=== PATIENT | male | born 1960 | race Caucasian/White ===

== ENCOUNTER → 2016-11-10 | Outpatient (CLI) | payer OTHER ==
[2016-11-10 14:46] LABS: CHLORIDE,CL 109 mmol/L (98-110); SODIUM,NA 141 mmol/L (136-146)
== END ==
LOC: MW.LAB 13:41
PROVIDERS: ATTEND Orthopaedic Surgery
DX: M25.511 Pain in right shoulder (principal)
CPT/HCPCS: 36415; 80069; 84550; 85025; 85652; 86038; 86140; 86430; 86812

== ENCOUNTER 2021-08-21 04:16 | Emergency (ER) | payer OTHER ==
[2021-08-21] MEDS ORDERED: Morphine 4 MG/ML VIAL IVPUSH ONE (04:22)
--- NOTE | 2021-08-21 04:33 | EDM.PDOC ---
<Tanner Duffy - Last Filed: 08/21/21 06:18> ED HPI GENERAL MEDICAL PROBLEM - General Chief Complaint: Chest Pain Stated Complaint: SEVERE CHEST PAINS Time Seen by Provider: 08/21/21 06:00 - History of Present Illness INITIAL COMMENTS - FREE TEXT/NARRATIVE: CHIEF COMPLAINT(S): Chest pain HISTORY OF PRESENT ILLNESS: This is a 61-year-old man with a past medical history of hypertension who comes to the emergency department with a chief complaint of chest pain. The patient states that starting approximately 6-1/2 hours ago he started to experience left-sided chest pain which he states that does not radiate. He describes it as sharp and rates it as 8-9 out of 10. He states that he does have some associated shortness of breath. He states that he was working at the time and it has not gotten any better and is only getting worse. He has not tried any pain medication. He denies any diaphoresis, nausea or vomiting. He denies any numbness or tingling. He states that he had a similar pain approximately week ago but it improved. He currently states that he also had a fall 1 week ago and landed on his anterior chest with his hand in front of his chest. He states this feels similar however his pain improved after his fall so he did not think anything of it. He denies any prior history of CAD, CHF, recent travel, recent surgery or prior history of DVT or PE. He denies any history of aortic aneurysm or dissection. REVIEW OF SYSTEMS: Constitutional: Denies fever, chills. Eyes: Denies eye pain Ears, Nose, Mouth, & Throat: Denies earache Cardiovascular: Positive for chest pain Respiratory: Positive for shortness of breath Gastrointestinal: Denies Nausea, vomiting, diarrhea, hematochezia. Genitourinary: Denies hematuria Skin:Denies a rash MSK: Denies joint pain Neurological: Denies blurred vision, numbness, tingling Psychiatric: Denies depression PAST MEDICAL HISTORY: As per history of present illness and as reviewed below otherwise noncontributory. SURGICAL HISTORY: As per history of present illness and as reviewed below otherwise noncontributory. SOCIAL HISTORY: As per history of present illness and as reviewed below otherwise noncontributory. FAMILY HISTORY: As per history of present illness and as reviewed below otherwise noncontributory. EXAMINATION OF ORGAN SYSTEMS/BODY AREAS: Constitutional: Blood pressure is 166/101, heart rate 95, respiratory rate 22 with an oxygen saturation of 100% on room air. Temperature 36.7 General: Middle-aged man who appears to be in a moderate amount of pain Psychiatric: Appropriate mood and affect. Eyes: No scleral icterus or conjunctival erythema ENMT: Moist mucous membranes. No pharyngeal erythema Cardiovascular: Regular, rate, and rhythm. No gallops, murmurs, or rubs. Bilateral upper extremity pulses symmetric and intact. No peripheral edema. No JVD. Respiratory: Lungs clear to auscultation bilaterally. No wheezes, rales, or rhonchi. The patient is mildly tachypneic but is speaking in full sentences. Gastrointestinal: Soft, tenderness to palpation in the epigastric region. Nondistended. No rebound or guarding. Normoactive bowel sounds Genitourinary: No suprapubic tenderness Musculoskeletal: Normal range of motion. Skin: No lesions or abrasions. Neurological: Alert, GCS 15 strength and sensation grossly intact in upper and lower extremities bilaterally MEDICAL DECISION MAKING AND COURSE IN THE ED WITH INTERPRETATION/REVIEW OF DIAGNOSTIC STUDIES: This is a 61-year-old man with a past medical history of hypertension who comes to the emergency department with acute onset severe chest pain with an examination revealing abdominal pain and tachypnea who is hypertensive. At this time we did obtain a screening EKG which did not reveal any acute signs of ischemia. Cardiac monitoring at this time did reveal sinus rhythm and pulse oximetry with good waveform was 100% on room air. Given his hypertension and severe chest pain and abdominal pain I am concerned about the possibility of aortic dissection. Obtain a CT angiogram of the chest abdomen pelvis to evaluate. Will also undergo an ACS work-up. We will provide the patient with 4 mg of IV morphine at this time and will await imaging prior to providing the patient with aspirin. Patient was amenable to this plan DDx: ACS, musculoskeletal pain, aortic dissection Laboratory: CBC reveals a leukocytosis of 12.44, elevated hemoglobin 18 otherwise unremarkable. BMP reveals elevated creatinine of 1.4 otherwise unremarkable. Magnesium is normal at 1.8. Troponin is negative. Covid and influenza are negative. On reevaluation patient reported improvement in his chest pain however it had not resolved. At this time imaging was still pending. We will reevaluate. Repeat EKG was obtained which did reveal sinus rhythm with intermittent pauses. No evidence of heart block otherwise. The radiological images were viewed by myself along with reading the report from the radiologist. CTA of the thorax, abdomen and pelvis does not reveal any evidence of aortic dissection or abnormality. There is mild right paratracheal mediastinal lymphadenopathy otherwise unremarkable. There was no intra-abdominal process. In addition there is a mild compression fracture of T6 vertebral body of indeterminate age and degenerative disc disease. Heart Score History: Slightly or Non-Suspicious (0) ECG: Non-specific repolarization (1) Age: 45-64 (1) Risk Factors: 1-2 (1) Initial Troponin: </= normal limit (0) Total Score: 3-> low risk Given the CT is negative we will provide the patient with aspirin by mouth. Differential also includes costochondritis given his recent fall. There was no evidence of bony abnormalities. We will provide the patient with Flexeril and reevaluate. At this time given his continued chest pain I would like to obtain a repeat troponin at 3 hours. He was amenable to this plan. DISPOSITION: Patient was signed out to oncoming day team physician pending repeat troponin and final disposition CONDITION: Fair PROCEDURES: Cardiac monitoring interpretation, pulse oximetry interpretation FINAL IMPRESSION(S)/DIAGNOSES: 1. Acute chest pain 2. Acute shortness of breath Tanner Duffy M.D. 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 Cardiovascular History: Reports: Hypertension Respiratory History: Reports: None Gastrointestinal History: Reports: None Genitourinary History: Reports: None Musculoskeletal History: Reports: Gout Neurological History: Reports: None Psychiatric History: Reports: None Endocrine/Metabolic History: Reports: Obesity/BMI 30+ Hematologic History: Reports: None Immunologic History: Reports: None Oncologic (Cancer) History: Reports: None Dermatologic History: Reports: None - Infectious Disease History Infectious Disease History: Reports: None - Past Surgical History Head Surgeries/Procedures: Reports: None Social & Family History - Family History Family Medical History: No Pertinent Family History ED ROS GENERAL - Review of Systems Review Of Systems: See Below ED EXAM, GENERAL - Physical Exam Exam: See Below Departure - Departure Disposition: Home, Self-Care 01 Clinical Impression: Chest pain Qualifiers: Chest pain type: unspecified Qualified Code(s): R07.9 - Chest pain, unspecified - Discharge Information Instructions: Nonspecific Chest Pain, Adult Referrals: PCP,None [Primary Care Provider] - Forms: ED Department Discharge Additional Instructions: Your labs were grossly unremarkable. You should follow-up with a poultry dressing worker to see about getting a stress test. If you have worsening chest pain you should come back to the ER. Wool Hanker: [facility] [address] [place] [phone] The following information is given to patients seen in the emergency department who are being discharged to home. This information is to outline your options for follow-up care. We provide all patients seen in our emergency department with a follow-up referral. The need for follow-up, as well as the timing and circumstances, are variable depending upon the specifics of your emergency department visit. If you don't have a primary care physician on staff, we will provide you with a referral. We always advise you to contact your personal physician following an emergency department visit to inform them of the circumstance of the visit and for follow-up with them and/or the need for any referrals to a consulting specialist. The emergency department will also refer you to a specialist when appropriate. This referral assures that you have the opportunity for follow-up care with a specialist. All of these measure are taken in an effort to provide you with optimal care, which includes your follow-up. Under all circumstances we always encourage you to contact your private physician who remains a resource for coordinating your care. When calling for f ollow-up care, please make the office aware that this follow-up is from your recent emergency room visit. If for any reason you are refused follow-up, please contact the [facility] Emergency Department at and asked to speak to the emergency department charge nurse. Please follow up with your primary care physician. If you do not have a primary care physician, see below: [facility] [address] [place] [id number] [facility] [address] [place], [place] [id number] [facility] [address], [place] [address] Sepsis Event Note (ED) - Evaluation Sepsis Screening Result: No Definite Risk <Enrico Case - Last Filed: 08/21/21 08:16> ED HPI GENERAL MEDICAL PROBLEM - General Source of Information: Reports: Patient History Limitations: Reports: No Limitations Course - Vital Signs Last Recorded V/S: Last Vital Signs Temp 98.1 F 08/21/21 04:23 Pulse 82 08/21/21 07:00 Resp 18 08/21/21 07:00 BP 173/92 H 08/21/21 07:00 Pulse Ox 99 08/21/21 07:00 - Orders/Labs/Meds Orders: Active Orders 24 hr Category Date Time Status Cardiac Monitoring [RC] . DIRECTED Care 08/21/21 04:22 Active Pulse Oximetry [RC] ASDIRECTED Care 08/21/21 04:22 Active Labs: Laboratory Tests 08/21/21 08/21/21 08/21/21 Range/Units 04:20 04:20 05:16 WBC 12.44 H (4.0-11.0) K/uL RBC 5.18 (4.50-5.90) M/uL Hgb 18.0 H (13.0-17.0) g/dL Hct 49.9 (38.0-50.0) % MCV 96.3 (80.0-98.0) fL MCH 34.7 H (27.0-32.0) pg MCHC 36.1 (31.0-37.0) g/dL RDW Std Deviation 43.5 (28.0-62.0) fl RDW Coeff of [place] 12 (11.0-15.0) % Plt Count 245 (150-400) K/uL MPV 10.30 (7.40-12.00) fL Neut % (Auto) 59.4 (48.0-80.0) % Lymph % (Auto) 29.6 (16.0-40.0) % Lyman % (Auto) 9.0 (0.0-15.0) % Eos % (Auto) 1.5 (0.0-7.0) % Baso % (Auto) 0.5 (0.0-1.5) % Neut # (Auto) 7.4 H (1.4-5.7) K/uL Lymph # (Auto) 3.7 H (0.6-2.4) K/uL Lyman # (Auto) 1.1 H (0.0-0.8) K/uL Eos # (Auto) 0.2 (0.0-0.7) K/uL Baso # (Auto) 0.1 (0.0-0.1) K/uL Nucleated RBC % 0.0 /100WBC Nucleated RBCs # 0 K/uL Sodium 140 (136-148) mmol/L Potassium 3.9 (3.5-5.1) mmol/L Chloride 104 (98-107) mmol/L Carbon Dioxide 22.0 (21.0-32.0) mmol/L BUN 18 (7.0-18.0) mg/dL Creatinine 1.4 H (0.8-1.3) mg/dL Est Cr Clr Drug Dosing TNP Estimated GFR (MDRD) 51.4 ml/min Glucose 90 (74-106) mg/dL Calcium 9.3 (8.5-10.1) mg/dL Magnesium 1.8 (1.8-2.4) mg/dL Troponin I < 0.050 (0.000-0.056) ng/mL Influenza Type A RNA NEGATIVE (NEGATIVE) Influenza Type B RNA NEGATIVE (NEGATIVE) SARS-CoV-2 RNA (VIANNEY) NEGATIVE (NEGATIVE) 08/21/21 Range/Units 07:12 WBC (4.0-11.0) K/uL RBC (4.50-5.90) M/uL Hgb (13.0-17.0) g/dL Hct (38.0-50.0) % MCV (80.0-98.0) fL MCH (27.0-32.0) pg MCHC (31.0-37.0) g/dL RDW Std Deviation (28.0-62.0) fl RDW Coeff of [place] (11.0-15.0) % Plt Count (150-400) K/uL MPV (7.40-12.00) fL Neut % (Auto) (48.0-80.0) % Lymph % (Auto) (16.0-40.0) % Lyman % (Auto) (0.0-15.0) % Eos % (Auto) (0.0-7.0) % Baso % (Auto) (0.0-1.5) % Neut # (Auto) (1.4-5.7) K/uL Lymph # (Auto) (0.6-2.4) K/uL Lyman # (Auto) (0.0-0.8) K/uL Eos # (Auto) (0.0-0.7) K/uL Baso # (Auto) (0.0-0.1) K/uL Nucleated RBC % /100WBC Nucleated RBCs # K/uL Sodium (136-148) mmol/L Potassium (3.5-5.1) mmol/L Chloride (98-107) mmol/L Carbon Dioxide (21.0-32.0) mmol/L BUN (7.0-18.0) mg/dL Creatinine (0.8-1.3) mg/dL Est Cr Clr Drug Dosing Estimated GFR (MDRD) ml/min Glucose (74-106) mg/dL Calcium (8.5-10.1) mg/dL Magnesium (1.8-2.4) mg/dL Troponin I < 0.050 (0.000-0.056) ng/mL Influenza Type A RNA (NEGATIVE) Influenza Type B RNA (NEGATIVE) SARS-CoV-2 RNA (VIANNEY) (NEGATIVE) Meds: Medications Discontinued Medications Generic Name Dose Route Start Last Admin Trade Name Freq PRN Reason Stop Dose Admin Aspirin 324 mg 08/21/21 06:20 08/21/21 06:33 Aspirin 81 Mg Tab.Chew PO 08/21/21 06:21 324 mg ONETIME ONE Administration Cyclobenzaprine HCl 10 mg 08/21/21 06:20 08/21/21 06:33 Cyclobenzaprine 10 Mg Tab PO 08/21/21 06:21 10 mg ONETIME ONE Administration Lactated Ringer's 1,000 mls @ 999 mls/hr 08/21/21 05:31 08/21/21 05:38 Ringers, Lactated IV 08/21/21 06:31 999 mls/hr STAT STA Administration Iopamidol 100 ml 08/21/21 05:09 08/21/21 05:10 Iopamidol 755 Mg/Ml 500 Ml Multipack Bottle IVPUSH 08/21/21 05:10 100 ml ONETIME STA Administration Morphine Sulfate 4 mg 08/21/21 04:22 08/21/21 04:30 Morphine 4 Mg/Ml Vial IVPUSH 08/21/21 04:23 4 mg ONETIME ONE Administration - Re-Assessments/Exams Free Text/Narrative Re-Assessment/Exam: 08/21/21 07:00 Patient care signed out to me pending repeat troponin and reassessment. Departure - Departure Time of Disposition: 08:15 Condition: Good Sepsis Event Note (ED) - Focused Exam Vital Signs: Vital Signs Temp Pulse Resp BP Pulse Ox 08/21/21 07:00 82 18 173/92 H 99 08/21/21 06:37 76 148/87 H 98 08/21/21 05:57 77 148/88 H 99 08/21/21 05:20 76 17 171/104 H 98 08/21/21 04:23 98.1 F 95 22 H 166/101 H 100
--- NOTE | 2021-08-21 04:38 | PCM.EKG ---
#1 Interpretation EKG Date: 08/21/21 Time: 04:17 Rhythm: NSR Rate (Beats/Min): 105 [place]: Normal P-Wave: Present QRS: RBBB ST-T: Normal QT: Normal Comparison: No Change (10/28/18) EKG Interpretation Comments: Sinus Tachycardia
[2021-08-21] MEDS ORDERED: Iopamidol 755 MG/ML 500 ML Multipack Bottle IVPUSH STA (05:09)
[2021-08-21 05:22] LABS: BLOOD UREA NITROGEN,BUN 18 mg/dL (7.0-18.0); CHLORIDE,CL 104 mmol/L (98-107); GLUCOSE RANDOM 90 mg/dL (74-106); POTASSIUM,K 3.9 mmol/L (3.5-5.1); SODIUM,NA 140 mmol/L (136-148)
[2021-08-21] MEDS ORDERED: Lactated Ringers 1,000 ML IV STA (05:31)
--- NOTE | 2021-08-21 05:53 | CT ---
This noncontrast CT of the chest was interpreted as part of the accompanying CT angiogram of the chest. Please note that all CT scans at this facility use dose modulation, iterative reconstruction, and/or weight-based dosing when appropriate to reduce radiation dose to as low as reasonably achievable. Dictated by Parish Singer MD @ 08/21/2021 5:52:48 AM (Electronically Signed)
--- NOTE | 2021-08-21 05:54 | PCM.EKG ---
#2 Interpretation EKG Date: 08/21/21 Time: 05:44 Rhythm: NSR Rate (Beats/Min): 78 [place]: Normal P-Wave: Present QRS: RBBB ST-T: Normal QT: Normal Comparison: No Change (today) EKG Interpretation Comments: Sinus Rhythm with intermittent pauses
[2021-08-21 06:03] LABS: CORONAVIRUS COVID-19 NAA NEGATIVE (NEGATIVE); INFLUENZA A NAA NEGATIVE (NEGATIVE); INFLUENZA B NAA NEGATIVE (NEGATIVE)
[2021-08-21] MEDS ORDERED: Aspirin 81 MG Tab.Chew PO ONE (06:20)
[2021-08-21] MEDS ORDERED: Cyclobenzaprine 10 MG Tab PO ONE (06:20)
--- NOTE | 2021-08-21 06:45 | CT ---
INDICATION: Chest and abdomen pain. TECHNIQUE: CT abdomen and pelvis angio acquired with 100 cc Isovue 370 IV contrast. COMPARISON: None. FINDINGS: Lower chest: Unremarkable. Liver: Unremarkable. Normal in size and attenuation. No suspicious masses. Gallbladder and bile ducts: Unremarkable. No stones or inflammation. No biliary dilatation. Pancreas: Unremarkable. No mass or inflammation. Spleen: Unremarkable. Normal in size. No masses. Adrenal glands: Small low-attenuation nodule in the left adrenal gland very likely represents a benign adenoma. Kidneys: Unremarkable. No suspicious masses, stones, or hydronephrosis. GI tract: Unremarkable. Normal in caliber. No sign of mass or inflammation. Normal appendix. Vasculature: Abdominal aorta is normal in caliber and there is no dissection. Mesenteric arteries are patent. Lymph nodes: No lymphadenopathy. Omentum/Peritoneum/Abdominal Wall: Unremarkable. No sign of mass or infiltration. No free air or significant free fluid. Pelvis: Unremarkable. Bones: Unremarkable for age. IMPRESSION: Unremarkable CT of the abdomen pelvis. No acute or specific findings to explain chest or abdomen pain. Specifically no aortic aneurysm or dissection. Please note that all CT scans at this facility use dose modulation, iterative reconstruction, and/or weight-based dosing when appropriate to reduce radiation dose to as low as reasonably achievable. Dictated by Walter Bush MD @ 08/21/2021 6:45:12 AM (Electronically Signed)
[2021-08-21 08:40] VITALS: BP 135/60; PULSE 68
== END 2021-08-21 08:30 | disposition home or self-care (01) ==
LOC: MW.ED 04:16
DX: R07.9 Chest pain, unspecified (principal); R06.02 Shortness of breath; I10 Essential (primary) hypertension; E66.9 Obesity, unspecified; Z88.0 Allergy status to penicillin; Z68.30 Body mass index [BMI] 30.0-30.9, adult; Z20.822 Contact with and (suspected) exposure to COVID-19
CPT/HCPCS: 0240U; 36415; 71275; 74174; 80048; 83735; 84484; 85025; 93005; 96374; 99285; A9270; J2270; J7120; Q9967

== ENCOUNTER 2023-05-22 17:06 | Emergency (ER) | payer OTHER ==
[2023-05-22] MEDS ORDERED: Diphtheria,Pertussis(Acell),Tetanus Vaccine 0.5 ML Syringe IM ONE (17:39)
[2023-05-22] MEDS ORDERED: Tetracaine HCl/PF 0.5% 4 ML Bottle EYEBOTH ONE (17:39)
[2023-05-22 20:29] VITALS: BP 178/99; PULSE 69
== END 2023-05-22 20:27 | disposition home or self-care (01) ==
LOC: MW.ED 17:06
DX: T15.01XA Foreign body in cornea, right eye, initial encounter (principal); I10 Essential (primary) hypertension; E66.9 Obesity, unspecified; Z68.32 Body mass index [BMI] 32.0-32.9, adult; Z23 Encounter for immunization; Z79.899 Other long term (current) drug therapy; Z88.0 Allergy status to penicillin
CPT/HCPCS: 65205; 65220; 90471; 90715; 99283; J3490

== ENCOUNTER 2023-06-08 21:21 | Emergency (ER) | payer OTHER ==
[2023-06-08 21:44] LABS: BASOPHILS ABSOLUTE AUTO 0.04 K/uL (0.00-0.20); BASOPHILS PERCENT AUTO 0.7 % (0.0-1.0); EOSINOPHILS ABSOLUTE AUTO 0.14 K/uL (0.00-0.45); EOSINOPHILS PERCENT AUTO 2.4 % (0.0-6.0); HEMATOCRIT 49.1 % (42.0-52.0); HEMOGLOBIN 17.7 g/dL (14.0-18.0); IMMATURE GRAN ABSOLUTE AUTO 0.01 K/uL (0.00-0.05); IMMATURE GRAN PERCENT AUTO 0.2 % (0.0-0.4); LYMPHOCYTES ABSOLUTE AUTO 1.88 K/uL (1.00-4.80); LYMPHOCYTES PERCENT AUTO 31.9 % (24.0-44.0); MEAN CORPUSCULAR HEMOGLOBIN 35.5 pg (28.0-32.0); MEAN CORPUSCULAR VOLUME 98.4 fL (83.0-99.0); MEAN PLATELET VOLUME 9.5 fL (9.4-12.4); MONOCYTES PERCENT AUTO 10.2 % (0.0-8.0); NEUTROPHILS ABSOLUTE AUTO 3.22 K/uL (1.80-7.70); NEUTROPHILS PERCENT AUTO 54.6 % (41.0-71.0); PLATELET COUNT,PLT 187 K/uL (150-400); RED BLOOD CELL COUNT 4.99 M/uL (4.52-5.90); WHITE BLOOD CELL COUNT,WBC 5.89 K/uL (3.9-11.3)
[2023-06-08] MEDS ORDERED: Tenecteplase 50 MG Kit IVPUSH ONE (21:49)
[2023-06-08 21:58] LABS: INR 1.07 (0.86-1.11); PTT,PARTIAL THROMBOPLSTIN TIME 28.2 SEC (23.9-30.7)
[2023-06-08] MEDS ORDERED: Iopamidol 755 MG/ML 500 ML Multipack Bottle IVPUSH ONE (21:58)
[2023-06-08 22:14] LABS: A/G RATIO 1.3 (0.9-1.6); ALBUMIN 4.1 g/dL (3.4-5.0); CALCIUM 8.9 mg/dL (8.5-10.1); CARBON DIOXIDE,CO2 25.9 mmol/L (21.0-32.0); CREATININE 1.2 mg/dL (0.8-1.3); EST CRCL DRUG DOSING (CG) 60.96 mL/min; POTASSIUM,K 4.3 mmol/L (3.5-5.1); PROTEIN TOTAL,TP 7.2 g/dL (6.4-8.2)
[2023-06-08] MEDS ORDERED: niCARdipine/Normal Saline 20 MG/200 ML BAG IV SCH (22:45)
[2023-06-09] MEDS ORDERED: Morphine 4 MG/ML Syringe IVPUSH ONE (00:42)
[2023-06-09] MEDS ORDERED: niCARdipine/Normal Saline 20 MG/200 ML BAG IV SCH (02:30)
[2023-06-09 02:42] VITALS: BP 140/80; PULSE 84
== END 2023-06-09 02:52 ==
LOC: MW.ED 21:21
DX: I62.9 Nontraumatic intracranial hemorrhage, unspecified (principal)
CPT/HCPCS: 36415; 70450; 70496; 70498; 80053; 82947; 84484; 85025; 85610; 85730; 93005; 96365; 96366; 96375; 99285; J2270; Q9967; 93010; 99291; J3490

== ENCOUNTER 2024-05-08 06:41 | Emergency (ER) | payer SELFPAY ==
[2024-05-08 09:11] LABS: BASOPHILS ABSOLUTE AUTO 0.05 K/uL (0.00-0.20); BASOPHILS PERCENT AUTO 1.2 % (0.0-1.0); EOSINOPHILS ABSOLUTE AUTO 0.13 K/uL (0.00-0.45); HEMATOCRIT 47.5 % (42.0-52.0); HEMOGLOBIN 17.1 g/dL (14.0-18.0); IMMATURE GRAN ABSOLUTE AUTO 0.01 K/uL (0.00-0.05); IMMATURE GRAN PERCENT AUTO 0.2 % (0.0-0.4); LYMPHOCYTES ABSOLUTE AUTO 1.29 K/uL (1.00-4.80); LYMPHOCYTES PERCENT AUTO 29.7 % (24.0-44.0); MEAN CORPUSCULAR HEMOGLOBIN 36.3 pg (28.0-32.0); MEAN CORPUSCULAR VOLUME 100.8 fL (83.0-99.0); MEAN PLATELET VOLUME 9.9 fL (9.4-12.4); MONOCYTES ABSOLUTE AUTO 0.65 K/uL (0.00-0.80); NEUTROPHILS ABSOLUTE AUTO 2.21 K/uL (1.80-7.70); NEUTROPHILS PERCENT AUTO 50.9 % (41.0-71.0); PLATELET COUNT,PLT 143 K/uL (150-400); RED BLOOD CELL COUNT 4.71 M/uL (4.52-5.90); WHITE BLOOD CELL COUNT,WBC 4.34 K/uL (3.9-11.3)
[2024-05-08 09:26] LABS: A/G RATIO 1.2 (0.9-1.6); ALBUMIN 3.5 g/dL (3.4-5.0); BILIRUBIN TOTAL 0.4 mg/dL (0.2-1.0); CALCIUM 8.6 mg/dL (8.5-10.1); CARBON DIOXIDE,CO2 23.8 mmol/L (21.0-32.0); CREATININE 0.9 mg/dL (0.8-1.3); EST CRCL DRUG DOSING (CG) 91.01 mL/min; PROTEIN TOTAL,TP 6.3 g/dL (6.4-8.2)
[2024-05-08] MEDS: Sodium Chloride 0.9% 1,000 ML IV STA (09:57)
[2024-05-08 10:05] LABS: APPEARANCE,URINE CLEAR; BILIRUBIN,URINE NEGATIVE (NEGATIVE); GLUCOSE,URINE NEGATIVE (NEGATIVE); KETONES,URINE NEGATIVE (NEGATIVE); LEUKOCYTE ESTERASE,URINE NEGATIVE (NEGATIVE); NITRITE,URINE NEGATIVE (NEGATIVE); OCCULT BLOOD,URINE NEGATIVE (NEGATIVE); PH,URINE 5.5 (5.0-8.0); PROTEIN,URINE NEGATIVE (NEGATIVE); UROBILINOGEN,URINE 0.2 EU/dL (<2.0)
[2024-05-08 10:10] LABS: COLOR,URINE STRAW
[2024-05-08 11:16] VITALS: BP 109/56; PULSE 83
== END 2024-05-08 11:15 | disposition home or self-care (01) ==
LOC: MW.ED 06:41
DX: M54.50 Low back pain, unspecified (principal); F10.90 Alcohol use, unspecified, uncomplicated; I10 Essential (primary) hypertension; E66.9 Obesity, unspecified; Z87.39 Personal history of other diseases of the musculoskeletal system and connective tissue; Z79.899 Other long term (current) drug therapy; Z88.0 Allergy status to penicillin; Z68.32 Body mass index [BMI] 32.0-32.9, adult
CPT/HCPCS: 36415; 72131; 80053; 81003; 84484; 85025; 93005; 99284; J7030; 93010; 99283

== ENCOUNTER 2025-06-02 09:10 | Emergency (ER) | payer OTHER ==
[2025-06-02 09:45] VITALS: BP 165/95; PULSE 73
[2025-06-02] MEDS: Ketorolac 30 MG/ML SDV IM ONE (10:43)
[2025-06-02] MEDS: Dexamethasone Sod Phos Preservative Free 10 MG/ML Vial IM ONE (10:43)
== END 2025-06-02 10:48 | disposition home or self-care (01) ==
LOC: MW.ED 09:10
DX: M54.50 Low back pain, unspecified (principal); I10 Essential (primary) hypertension; E66.9 Obesity, unspecified; F17.200 Nicotine dependence, unspecified, uncomplicated; Z88.0 Allergy status to penicillin; Z79.899 Other long term (current) drug therapy
CPT/HCPCS: 96372; 99283; A9270; J1100; J1885

== ENCOUNTER 2025-07-24 18:41 | Emergency (ER) | payer OTHER ==
[2025-07-24] MEDS: Fluorescein 1 MG Ophth Strip EYERT ONE (19:24)
[2025-07-24] MEDS: Tetracaine HCl/PF 0.5% 4 ML Bottle EYERT ONE (19:24)
[2025-07-24 20:00] VITALS: BP 123/79; PULSE 93
== END 2025-07-24 19:58 | disposition home or self-care (01) ==
LOC: MW.ED 18:41
DX: S05.01XA Injury of conjunctiva and corneal abrasion without foreign body, right eye, initial encounter (principal); I10 Essential (primary) hypertension; E66.9 Obesity, unspecified; Z72.0 Tobacco use; Z79.899 Other long term (current) drug therapy; Z68.32 Body mass index [BMI] 32.0-32.9, adult; X58.XXXA Exposure to other specified factors, initial encounter
CPT/HCPCS: 99283; A9270; J3490